=== PATIENT | female | born 1965 | race African-American/Black ===

== ENCOUNTER 2021-12-25 13:21 | Emergency (ER) | payer MEDICAID ==
[~2021-12-25] VITALS: Ht 167.6 cm; Wt 86.0 kg
[~2021-12-25 13:21] MED LIST: ALBUTEROL; DILANTIN; LITHIUM; SEROQUEL
[2021-12-25] MEDS ORDERED: SODIUM CHLORIDE 0.9% 1,000 ML IV ONE (13:45)
[2021-12-25 14:09] VITALS: BP 120/60
[2021-12-25 15:11] LABS: CHLORIDE 111 mEq/L (98-107)
== END 2021-12-25 15:36 | disposition left against medical advice (07) ==
LOC: ER 13:32
DX: F41.9 Anxiety disorder, unspecified (principal); J45.909 Unspecified asthma, uncomplicated; R56.9 Unspecified convulsions; F17.210 Nicotine dependence, cigarettes, uncomplicated; Z98.890 Other specified postprocedural states; Z71.6 Tobacco abuse counseling
CPT/HCPCS: 36415; 71045; 80053; 83880; 84484; 93005; 96360; 99284; 99406; J7030

== ENCOUNTER 2022-03-17 13:53 | Emergency (ER) | payer MEDICAID, OTHER ==
[~2022-03-17] VITALS: Ht 175.3 cm; Wt 75.0 kg
[2022-03-17 13:55] VITALS: BP 110/72
== END 2022-03-17 14:42 | disposition left against medical advice (07) ==
LOC: ER 13:53
DX: G40.909 Epilepsy, unspecified, not intractable, without status epilepticus (principal); F41.9 Anxiety disorder, unspecified; J44.9 Chronic obstructive pulmonary disease, unspecified; J45.909 Unspecified asthma, uncomplicated; I25.2 Old myocardial infarction; F12.10 Cannabis abuse, uncomplicated; Z86.73 Personal history of transient ischemic attack (TIA), and cerebral infarction without residual deficits; Z88.8 Allergy status to other drugs, medicaments and biological substances; Z91.011 Allergy to milk products
CPT/HCPCS: 99283

== ENCOUNTER 2022-06-14 09:40 | Emergency (ER) | payer MEDICAID, OTHER ==
[~2022-06-14] VITALS: Ht 172.7 cm; Wt 81.0 kg
[2022-06-14] MEDS ORDERED: HYDROCODONE/ACETAMINOPHEN 5/325MG TABLET PO ONE (10:15)
[2022-06-14] MEDS ORDERED: HYDR-4001 MT (12:10)
[2022-06-14 12:55] VITALS: BP 147/78
== END 2022-06-14 12:56 | disposition home or self-care (01) ==
LOC: ER 09:40
DX: S00.83XA Contusion of other part of head, initial encounter (principal); M70.21 Olecranon bursitis, right elbow; M79.18 Myalgia, other site; V02.99XA Pedestrian with other conveyance injured in collision with two- or three-wheeled motor vehicle, unspecified whether traffic or nontraffic accident, initial encounter; Y93.89 Activity, other specified; Y92.410 Unspecified street and highway as the place of occurrence of the external cause
CPT/HCPCS: 70486; 71045; 73080; 99284

== ENCOUNTER 2022-06-26 03:14 | Emergency (ER) | payer MEDICAID, OTHER ==
[~2022-06-26] VITALS: Ht 177.8 cm; Wt 90.0 kg
[~2022-06-26 03:14] MED LIST changes: +HYDR-4001 MT
[2022-06-26] MEDS ORDERED: ALBUTEROL (0.083%) 2.5MG/3ML NEB HHN ONE ×3 (04:00→05:15)
[2022-06-26] MEDS ORDERED: ALBU18HF2 IH (04:15)
[2022-06-26] MEDS ORDERED: P50 PO (05:12)
[2022-06-26] MEDS ORDERED: PREDNISONE 20MG TABLET PO ONE (05:15)
[2022-06-26 05:20] VITALS: BP 131/69
[2022-06-26] MEDS ORDERED: ALBUTEROL (0.083%) 2.5MG/3ML NEB HHN NR ×3 (05:30)
[2022-06-26] MEDS ORDERED: IPRATROPIUM BROMIDE (0.02%) 0.5MG/2.5ML NEB HHN NR (05:30)
== END 2022-06-26 08:36 | disposition home or self-care (01) ==
LOC: ER 03:14
DX: R05.9 Cough, unspecified (principal); J45.901 Unspecified asthma with (acute) exacerbation; R56.9 Unspecified convulsions; F12.10 Cannabis abuse, uncomplicated; Z88.2 Allergy status to sulfonamides; Z86.59 Personal history of other mental and behavioral disorders; Z98.890 Other specified postprocedural states; Z77.098 Contact with and (suspected) exposure to other hazardous, chiefly nonmedicinal, chemicals
CPT/HCPCS: 71045; 81025; 94640; 99284; J7512; Z7610

== ENCOUNTER 2023-02-10 10:09 | Emergency (ER) | payer MEDICAID ==
[~2023-02-10] VITALS: Ht 165.1 cm; Wt 81.0 kg
[~2023-02-10 10:09] MED LIST changes: +ALBU18HF2 IH; +P50 PO
[2023-02-10 10:17] VITALS: O2SAT 98
[2023-02-10] MEDS ORDERED: LEVETIRACETAM 1000MG PREMIX 100 ML IV ONE (10:30)
[2023-02-10] MEDS ORDERED: PHENYTOIN SODIUM 1,000 MG in SODIUM CHLORIDE 0.9% 100 ML IV ONE (10:30)
[2023-02-10] MEDS ORDERED: LEVETIRACETAM 1000MG PREMIX 100 ML IV NR (10:45)
[2023-02-10 10:48] LABS: BASOPHILS % 0.3 % (0.0-2.0); EOSINOPHILS % 0.9 % (0.0-5.0); HEMOGLOBIN. 13.3 g/dL (12.0-16.0); LYMPHOCYTES % 12.7 % (20.0-50.0); MEAN CORPUSCULAR HEMOGLOBIN 30.3 pg (28.0-32.0); MEAN CORPUSCULAR HGB CONC 33.2 g/dL (31.0-37.0); MEAN CORPUSCULAR VOLUME 91.3 fL (81.0-99.0); MEAN PLATELET VOLUME 10.4 fl (7.4-10.4); MONOCYTES % 8.5 % (2.0-8.0); NEUTROPHILS % 77.6 % (40.0-76.0); PLATELET 216 x1000/uL (130-400); RED BLOOD CELL COUNT 4.39 mill/uL (4.2-5.4); RED CELL DISTRIBUTION WIDTH 14.3 % (11.6-14.6); WHITE BLOOD COUNT 12.9 x1000/uL (4.5-11.0)
[2023-02-10 11:00] VITALS: BP 121/79; PULSE 72; RESP 23; TEMP 98.3
[2023-02-10 11:22] LABS: CHLORIDE 111 mEq/L (98-107); INDEX HEMOLYSI 1 (1-3); INDEX ICTERIC 1 (1-4); INDEX LIPEMIC 1 (1-3); POTASSIUM 3.8 mEq/L (3.5-5.1); SODIUM 139 mEq/L (136-145)
[2023-02-10 11:31] LABS: ACETAMINOPHEN <2 ug/mL ug/mL (10-30); ALANINE AMINOTRANSFERASE 23 IU/L (13-61); ALBUMIN 3.7 g/dL (3.4-5.0); ASPARTATE AMINOTRANSFERASE 17 IU/L (15-37); BILIRUBIN TOTAL 0.4 mg/dL (0.1-1.0); CALCIUM 8.6 mg/dL (8.5-10.1); CARBON DIOXIDE 25 mEq/L (21-32); CREATININE 0.6 mg/dL (0.6-1.3); ETHANOL BLOOD < 10 mg/dL (-10); GLUCOSE 111 mg/dL (70-105); PROTEIN TOTAL 7.6 g/dL (6.0-8.3); UREA NITROGEN BLOOD 19 mg/dL (7-21)
[2023-02-10 11:33] LABS: PHENYTOIN 0.4 ug/mL (10-20)
[2023-02-10] MEDS ORDERED: PHENYTOIN SODIUM EXTENDED 100MG CAPSULE PO ONE (12:15)
[2023-02-10] MEDS ORDERED: PHENYTOIN SODIUM EXTENDED 100MG CAPSULE PO NR (12:30)
[2023-02-10] MEDS ORDERED: HYDROCODONE/ACETAMINOPHEN 5/325MG TABLET PO ONE (13:15)
[2023-02-10] MEDS ORDERED: MAGNESIUM/ALUMINUM HYDROXIDE/SIMETHICONE 30ML UDC PO ONE (13:15)
[2023-02-10] MEDS ORDERED: FAMOTIDINE 20MG TABLET PO ONE (13:15)
[2023-02-10 16:10] LABS: TROPONIN I HIGH SENSITIVITY < 4 ng/L (<54)
== END 2023-02-10 13:29 | disposition left against medical advice (07) ==
LOC: ER 10:09
DX: R56.9 Unspecified convulsions (principal); R11.2 Nausea with vomiting, unspecified; D64.9 Anemia, unspecified; Z98.890 Other specified postprocedural states; Z87.891 Personal history of nicotine dependence
CPT/HCPCS: 80053; 80307; 80329; 80320; 80185; 83690; 85025; 84484; 36415; 71045; 93005; 99285; Z7610 ×3; J1165; J1953; J7050; G0480

== ENCOUNTER 2025-04-08 11:19 | Emergency (ER) | payer OTHER, MEDICAID ==
[~2025-04-08] VITALS: Ht 162.6 cm; Wt 60.0 kg
[2025-04-08 11:21] VITALS: O2SAT 94
[2025-04-08] MEDS: KETOROLAC 15MG/ML VIAL IM ONE (12:21)
[2025-04-08] MEDS: ACETAMINOPHEN 500MG TABLET PO ONE (12:21)
[2025-04-08 14:13] VITALS: BP 125/68; PULSE 67; RESP 15; TEMP 36.9; O2SAT 95
[2025-04-08] MEDS ORDERED: ACET-2708 MT (14:48)
== END 2025-04-08 15:01 | disposition home or self-care (01) ==
LOC: ER 11:37 → CANBEDREQ 13:55 → ER 15:01
DX: S52.592A Other fractures of lower end of left radius, initial encounter for closed fracture (principal); J45.909 Unspecified asthma, uncomplicated; R41.0 Disorientation, unspecified; Z79.52 Long term (current) use of systemic steroids; V89.2XXA Person injured in unspecified motor-vehicle accident, traffic, initial encounter; Y92.410 Unspecified street and highway as the place of occurrence of the external cause; Y93.89 Activity, other specified; Y99.8 Other external cause status
CPT/HCPCS: 99285; 70450; 71045; 73080; 73110; 72125; 29125; 96372; J1885